=== PATIENT | female | born 1955 | race Caucasian/White ===

== ENCOUNTER 2016-09-06 15:40 | Observation (INO) | payer BC, OTHER ==
[2016-09-06 16:14] LABS: CHLORIDE,CL 105 mEq/L (98-106); SODIUM,NA 142 mEq/L (136-145)
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
[2016-09-06] MEDS ORDERED: Ondansetron 4 MG/2 ML SDV IV PRN (17:24)
[2016-09-06] MEDS ORDERED: Ondansetron 4 MG Tab.DIS PO PRN (17:24)
[2016-09-06] MEDS ORDERED: Enoxaparin 30 MG/0.3 ML Syringe SUBCUT SCH (18:00)
[2016-09-06] MEDS: Acetaminophen 325 MG Tab PO PRN (18:09)
[2016-09-06] MEDS ORDERED: Amitriptyline 25 MG Tab PO SCH (20:00)
[2016-09-07] MEDS: Acetaminophen 325 MG Tab PO PRN ×2 (03:15→08:06)
[2016-09-07 09:57] VITALS: BP 131/77
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
== END 2016-09-07 11:00 | disposition home or self-care (01) ==
LOC: CC.ED 15:47 → UNDOADMOB 16:59 → CC.MS 16:59
PROVIDERS: ADMIT Physician Assistant Medical; ATTEND General Practice
DX: S06.0X9A Concussion with loss of consciousness of unspecified duration, initial encounter (principal); K21.9 Gastro-esophageal reflux disease without esophagitis; V87.7XXA Person injured in collision between other specified motor vehicles (traffic), initial encounter; Z88.2 Allergy status to sulfonamides; Z79.899 Other long term (current) drug therapy; Z90.49 Acquired absence of other specified parts of digestive tract; Z98.890 Other specified postprocedural states
CPT/HCPCS: 36415; 70450; 73562; 80053; 82150; 85025; 85610; 99285; A9270; J1650; 96372; G0378